=== PATIENT | female | born 1980 | race Caucasian/White ===

== ENCOUNTER 2018-01-21 11:53 | Emergency (ER) | payer OTHER, MEDICAID ==
[~2018-01-21] VITALS: Ht 152.4 cm; Wt 47.2 kg
[~2018-01-21 11:53] MED LIST: ACCUNEB SO1.25 MG/1 INH; ACETAMINOPHEN-1 EAC1 PO; BACTRIM; CARISOPRODOL; CIPRO500 MG PO; CLONAZEPAM; FLAGYL500 MG PO; FLEXERIL PO; HYDROCODONE-AP1 EAC6 PO; HYDROCODONE-APA1 TA1 PO; IBUPROFEN 800800 M1 PO; IBUPROFEN 800800 MG PO; LEXAPRO20 MG PO; NORCO 5-325 TA1 EACH PO; PYRIDIUM100 M1 PO; SPIRIVA INH; ULTRAM 50MG TAB50 MG PO; ZOFRAN ODT4 MG PO
[2018-01-21 12:03] LABS: URINE BILIRUBIN NEGATIVE (Negative); URINE BLOOD NEGATIVE (Negative); URINE CLARITY CLEAR; URINE COLOR YELLOW; URINE GLUCOSE-RANDOM NEGATIVE (Negative); URINE KETONES NEGATIVE (Negative); URINE LEUKOCYTES NEGATIVE (Negative); URINE NITRITE NEGATIVE (Negative); URINE PROTEIN NEGATIVE (Negative); URINE SPECIFIC GRAVITY >= 1.030 (1.005-1.030); URINE UROBILINOGEN 0.2 E.U./dl (0.2-1.0)
[2018-01-21] MEDS ORDERED: PERCOCET PO (12:13)
[2018-01-21] MEDS ORDERED: ASA5UEC PO (12:13)
[2018-01-21] MEDS ORDERED: LISINOPRIL10 MG PO (12:13)
[2018-01-21] MEDS ORDERED: FLEXERIL PO (12:14)
[2018-01-21] MEDS ORDERED: DIFLUCAN150 M1 PO (12:55)
[2018-01-21] MEDS ORDERED: DOXYCYCLINE 10100 MG PO (12:55)
[2018-01-21 13:04] VITALS: BP 107/68
== END 2018-01-21 13:05 | disposition home or self-care (01) ==
LOC: M.ERS 11:53
PROVIDERS: Nurse Practitioner Family
DX: A59.01 Trichomonal vulvovaginitis (principal); Z90.49 Acquired absence of other specified parts of digestive tract; Z90.710 Acquired absence of both cervix and uterus; Z85.42 Personal history of malignant neoplasm of other parts of uterus; Z88.0 Allergy status to penicillin

== ENCOUNTER 2018-10-15 11:47 | Emergency (ER) | payer OTHER ==
[~2018-10-15] VITALS: Ht 152.4 cm; Wt 45.4 kg
[~2018-10-15 11:47] MED LIST changes: +ASA5UEC PO; +DIFLUCAN150 M1 PO; +DOXYCYCLINE 10100 MG PO; +LISINOPRIL10 MG PO; +PERCOCET PO
[2018-10-15 12:36] LABS: URINE BILIRUBIN NEGATIVE (Negative); URINE BLOOD NEGATIVE (Negative); URINE CLARITY CLEAR; URINE COLOR YELLOW; URINE GLUCOSE-RANDOM NEGATIVE (Negative); URINE KETONES NEGATIVE (Negative); URINE LEUKOCYTES-REFLEX NEGATIVE (Negative); URINE NITRITE-REFLEX NEGATIVE (Negative); URINE PROTEIN TRACE (Negative); URINE SPECIFIC GRAVITY >= 1.030 (1.005-1.030); URINE UROBILINOGEN 0.2 E.U./dl (0.2-1.0)
[2018-10-15 12:37] LABS: ABSOLUTE EOSINOPHILS 0.1 thou/uL (0.0-0.7); ABSOLUTE LYMPHOCYTES 1.9 thou/uL (0.8-5.3); ABSOLUTE MONOCYTES 0.2 thou/uL (0.0-1.2); ABSOLUTE NEUTROPHILS 2.2 thou/uL (1.6-8.1); BASOPHILS 0.7 %; EOSINOPHILS 1.9 %; HEMATOCRIT 38.7 % (37.0-47.0); HEMOGLOBIN 12.9 gm/dL (12.0-15.0); LYMPHOCYTES 43.8 %; MCH 31.1 pg (26.0-34.0); MCHC 33.5 g/dL (28.0-37.0); MCV 93.1 fL (80.0-100.0); MONOCYTES 3.9 %; NUCLEATED RBCS 0 /100WBC; PLATELET COUNT* 209 thou/uL (150-400); POLYS 49.7 %; RBC 4.16 mil/uL (4.20-5.00); RDW-CV 13.1 % (10.5-14.5); WBC 4.4 thou/uL (4.0-11.0)
[2018-10-15 12:46] LABS: CALCIUM 8.6 mg/dL (8.5-10.1); CREATININE 0.8 mg/dL (0.6-1.3); POTASSIUM 3.2 mmol/L (3.5-5.1)
[2018-10-15 12:50] LABS: ALBUMIN 3.7 g/dL (3.4-5.0); TOTAL BILIRUBIN 0.2 mg/dL (<0.1-1.0); TOTAL PROTEIN 6.9 g/dL (6.4-8.2)
[2018-10-15] MEDS ORDERED: ACIPHEX 20 MG T20 MG PO (12:57)
[2018-10-15 13:04] VITALS: BP 170/100
--- NOTE | 2018-10-15 18:43 | EKG ---
[place] [address] ELECTROCARDIOGRAM REPORT Name: NALLELY KUMAR Room: [facility]#: [id number] Admission: 10/15/18 Attend Phys: Discharge: 10/15/18 Date of : 78 Report #: [id number] THIS REPORT FOR: //name// [facility] ED Test Date: 2018-10-15 Test Time: 12:35:32 Pat Name: NALLELY KUMAR Department: Room: Gender: F Retail Sales Director: Julieta LOUISE : 1980 Requested By: Rusty Cota Order Number: [id number] MD: Indra Thurman Measurements Intervals [place] Rate: 56 P: 267 [place]: 144 QRS: 27 QRSD: 129 T: -15 QT: 425 QTc: 411 Interpretive Statements Ectopic atrial rhythm Nonspecific intraventricular conduction delay Borderline T abnormalities, inferior leads Compared to ECG 12/13/2015 11:23:59 Ectopic atrial rhythm now present T-wave abnormality now present Sinus rhythm no longer present Electronically Signed On 10-15-2018 18:43:22 PATIENT REGISTRATION MANAGER by Indra Thurman [email or web address] <ELECTRONICALLY SIGNED> By: Indra Thurman MD, [facility] 10/15/18 1843 1235 1235 Indra Thurman MD, [facility] /EPI
== END 2018-10-15 13:05 | disposition home or self-care (01) ==
LOC: M.ERS 11:47
PROVIDERS: Emergency Medicine
DX: K27.9 Peptic ulcer, site unspecified, unspecified as acute or chronic, without hemorrhage or perforation (principal); N80.9 Endometriosis, unspecified; F17.210 Nicotine dependence, cigarettes, uncomplicated; Z88.0 Allergy status to penicillin; Z90.710 Acquired absence of both cervix and uterus; Z90.49 Acquired absence of other specified parts of digestive tract

== ENCOUNTER 2018-11-02 15:30 | Emergency (ER) | payer OTHER ==
[~2018-11-02] VITALS: Ht 152.4 cm; Wt 44.6 kg
[~2018-11-02 15:30] MED LIST changes: +ACIPHEX 20 MG T20 MG PO
[2018-11-02] MEDS ORDERED: TRAMADOL 50 MG50 MG PO (16:11)
[2018-11-02 17:38] VITALS: BP 110/77
== END 2018-11-02 17:40 | disposition home or self-care (01) ==
LOC: M.ERS 15:30
DX: M25.562 Pain in left knee (principal); J43.9 Emphysema, unspecified; N80.9 Endometriosis, unspecified; F17.210 Nicotine dependence, cigarettes, uncomplicated; Z88.0 Allergy status to penicillin; Z90.49 Acquired absence of other specified parts of digestive tract; Z90.710 Acquired absence of both cervix and uterus; Z85.42 Personal history of malignant neoplasm of other parts of uterus

== ENCOUNTER 2018-12-09 09:09 | Emergency (ER) | payer OTHER ==
[~2018-12-09] VITALS: Ht 152.4 cm; Wt 46.3 kg
[~2018-12-09 09:09] MED LIST changes: +TRAMADOL 50 MG50 MG PO
[2018-12-09] MEDS ORDERED: VENTOLIN HFA 1818 GM INH ×2 (09:15→10:37)
[2018-12-09] MEDS ORDERED: PREDNISONE 20 M20 M1 PO (10:37)
[2018-12-09] MEDS ORDERED: ZPAK PO (10:37)
[2018-12-09 10:58] VITALS: BP 180/97
== END 2018-12-09 10:56 | disposition home or self-care (01) ==
LOC: M.ERS 09:09
DX: J40 Bronchitis, not specified as acute or chronic (principal); J43.9 Emphysema, unspecified; N80.9 Endometriosis, unspecified; F17.210 Nicotine dependence, cigarettes, uncomplicated; Z90.710 Acquired absence of both cervix and uterus; Z90.49 Acquired absence of other specified parts of digestive tract; Z88.0 Allergy status to penicillin

== ENCOUNTER 2019-02-09 19:41 | Emergency (ER) | payer OTHER ==
[~2019-02-09] VITALS: Ht 152.4 cm; Wt 48.5 kg
[~2019-02-09 19:41] MED LIST changes: +PREDNISONE 20 M20 M1 PO; +VENTOLIN HFA 1818 GM INH; +ZPAK PO
[2019-02-09] MEDS ORDERED: IBUPROFEN 800800 M1 PO (21:58)
[2019-02-09] MEDS ORDERED: BUTALB-APAP-CA1 EACH PO (21:58)
[2019-02-09] MEDS ORDERED: KEFLEX500 M1 PO (21:59)
[2019-02-09 22:09] VITALS: BP 129/81
== END 2019-02-09 22:09 | disposition still patient (30) ==
LOC: M.ERS 19:41
DX: S00.12XA Contusion of left eyelid and periocular area, initial encounter (principal); S00.33XA Contusion of nose, initial encounter; S70.11XA Contusion of right thigh, initial encounter; S80.12XA Contusion of left lower leg, initial encounter; S40.022A Contusion of left upper arm, initial encounter; S40.021A Contusion of right upper arm, initial encounter; S00.83XA Contusion of other part of head, initial encounter; N80.9 Endometriosis, unspecified; J43.9 Emphysema, unspecified; F17.210 Nicotine dependence, cigarettes, uncomplicated; Z88.0 Allergy status to penicillin; Z90.710 Acquired absence of both cervix and uterus; Z85.50 Personal history of malignant neoplasm of unspecified urinary tract organ; Z90.49 Acquired absence of other specified parts of digestive tract; Y08.89XA Assault by other specified means, initial encounter; Y93.89 Activity, other specified; Y92.89 Other specified places as the place of occurrence of the external cause; Y99.8 Other external cause status

== ENCOUNTER 2019-02-16 13:24 | Emergency (ER) | payer OTHER ==
[~2019-02-16] VITALS: Ht 152.4 cm; Wt 47.6 kg
[~2019-02-16 13:24] MED LIST changes: +BUTALB-APAP-CA1 EACH PO; +KEFLEX500 M1 PO
[2019-02-16] MEDS ORDERED: NORCO 5-325 TA1 EACH PO (14:49)
[2019-02-16] MEDS ORDERED: KEFLEX500 M1 PO (14:49)
[2019-02-16] MEDS ORDERED: CIPROFLOXIN HC2.5 M1 OPHTHALMIC (14:49)
[2019-02-16 15:06] VITALS: BP 128/79
== END 2019-02-16 15:06 | disposition home or self-care (01) ==
LOC: M.ERS 13:24
DX: S06.0X0A Concussion without loss of consciousness, initial encounter (principal); S05.01XA Injury of conjunctiva and corneal abrasion without foreign body, right eye, initial encounter; H72.91 Unspecified perforation of tympanic membrane, right ear; N80.9 Endometriosis, unspecified; J43.9 Emphysema, unspecified; F17.210 Nicotine dependence, cigarettes, uncomplicated; Z90.710 Acquired absence of both cervix and uterus; Z90.49 Acquired absence of other specified parts of digestive tract; Z85.42 Personal history of malignant neoplasm of other parts of uterus; Z88.0 Allergy status to penicillin; Y08.89XA Assault by other specified means, initial encounter; Y93.89 Activity, other specified; Y92.89 Other specified places as the place of occurrence of the external cause; Y99.8 Other external cause status

== ENCOUNTER 2020-09-02 19:08 | Emergency (ER) | payer OTHER, MEDICAID ==
[~2020-09-02] VITALS: Ht 152.4 cm; Wt 49.9 kg
[~2020-09-02 19:08] MED LIST changes: +CIPROFLOXIN HC2.5 M1 OPHTHALMIC
[2020-09-02] MEDS ORDERED: HYDROCHLOROTH12.5 M2 PO (19:26)
[2020-09-02] MEDS ORDERED: NICOTINE TRANSD21 M1 (19:26)
[2020-09-02] MEDS ORDERED: ABILIFY 5 MG TAB5 MG PO (19:27)
[2020-09-02] MEDS ORDERED: HYDROXYZINE HCL25 M2 PO (19:27)
[2020-09-02] MEDS ORDERED: AMBIEN5 MG PO (19:28)
[2020-09-02] MEDS ORDERED: BUSPIRONE HCL10 MG PO (19:28)
[2020-09-02] MEDS ORDERED: BEVESPI AEROS10.7 GM INH (19:28)
[2020-09-02] MEDS ORDERED: LEXAPRO20 MG PO (19:28)
[2020-09-02] MEDS ORDERED: NORVASC 2.5 MG2.5 M1 PO (19:29)
[2020-09-02] MEDS ORDERED: ATROVENT HFA14 GM INH (19:29)
[2020-09-02] MEDS ORDERED: SPIRIVA INH (19:30)
[2020-09-02] MEDS ORDERED: NAPROSYN500 MG PO (20:37)
[2020-09-02] MEDS ORDERED: ULTRAM 50MG TAB50 MG PO (20:37)
[2020-09-02 20:56] VITALS: BP 126/70
== END 2020-09-02 20:56 | disposition home or self-care (01) ==
LOC: M.ERS 19:08
DX: S20.212A Contusion of left front wall of thorax, initial encounter (principal); S00.03XA Contusion of scalp, initial encounter; Z79.899 Other long term (current) drug therapy; Z88.0 Allergy status to penicillin; Z90.710 Acquired absence of both cervix and uterus; Z90.49 Acquired absence of other specified parts of digestive tract; Y08.89XA Assault by other specified means, initial encounter; Y93.89 Activity, other specified; Y92.89 Other specified places as the place of occurrence of the external cause; Y99.8 Other external cause status

== ENCOUNTER 2021-01-28 18:17 | Emergency (ER) | payer OTHER, MEDICAID ==
[~2021-01-28] VITALS: Ht 152.4 cm; Wt 54.0 kg
[~2021-01-28 18:17] MED LIST changes: +ABILIFY 5 MG TAB5 MG PO; +AMBIEN5 MG PO; +ATROVENT HFA14 GM INH; +BEVESPI AEROS10.7 GM INH; +BUSPIRONE HCL10 MG PO; +HYDROCHLOROTH12.5 M2 PO; +HYDROXYZINE HCL25 M2 PO; +NAPROSYN500 MG PO; +NICOTINE TRANSD21 M1; +NORVASC 2.5 MG2.5 M1 PO
[2021-01-28] MEDS ORDERED: SUPER THERAVIT1 EACH PO (18:27)
[2021-01-28] MEDS ORDERED: DOXYCYCLINE 10100 MG PO (18:39)
[2021-01-28] MEDS ORDERED: ONDANSETRON ODT4 MG PO (18:59)
[2021-01-28 19:04] LABS: URINE BILIRUBIN NEGATIVE (Negative); URINE BLOOD NEGATIVE (Negative); URINE CLARITY CLEAR; URINE COLOR YELLOW; URINE GLUCOSE-RANDOM NEGATIVE (Negative); URINE KETONES NEGATIVE (Negative); URINE LEUKOCYTES-REFLEX NEGATIVE (Negative); URINE NITRITE-REFLEX NEGATIVE (Negative); URINE PROTEIN NEGATIVE (Negative); URINE SPECIFIC GRAVITY >= 1.030 (1.005-1.030); URINE UROBILINOGEN 0.2 E.U./dl (0.2-1.0)
[2021-01-28 20:19] VITALS: BP 126/78
== END 2021-01-28 20:19 | disposition home or self-care (01) ==
LOC: M.ERS 18:17
PROVIDERS: Physician Assistant
DX: Z20.2 Contact with and (suspected) exposure to infections with a predominantly sexual mode of transmission (principal); N80.9 Endometriosis, unspecified; Z88.0 Allergy status to penicillin; Z90.710 Acquired absence of both cervix and uterus; Z90.49 Acquired absence of other specified parts of digestive tract; Z85.42 Personal history of malignant neoplasm of other parts of uterus

== ENCOUNTER 2021-03-30 11:16 | Emergency (ER) | payer OTHER, MEDICAID ==
[~2021-03-30] VITALS: Ht 152.4 cm; Wt 54.4 kg
[~2021-03-30 11:16] MED LIST changes: +ONDANSETRON ODT4 MG PO; +SUPER THERAVIT1 EACH PO
[2021-03-30 11:43] LABS: ABSOLUTE EOSINOPHILS 0.2 thou/uL (0.0-0.7); ABSOLUTE LYMPHOCYTES 1.2 thou/uL (0.8-5.3); ABSOLUTE MONOCYTES 0.2 thou/uL (0.0-1.2); BASOPHILS 0.9 %; EOSINOPHILS 3.4 %; HEMATOCRIT 38.3 % (37.0-47.0); HEMOGLOBIN 12.8 gm/dL (12.0-15.0); MCHC 33.5 g/dL (28.0-37.0); MCV 92.7 fL (80.0-100.0); MONOCYTES 5.1 %; MPV 7.4 fl. (7.2-11.1); NUCLEATED RBCS 0 /100WBC; PLATELET COUNT* 274 thou/uL (150-400); POLYS 65.6 %; RBC 4.13 mil/uL (4.20-5.00); RDW-CV 12.8 % (10.5-14.5); WBC 4.6 thou/uL (4.0-11.0)
[2021-03-30 11:54] LABS: CALCIUM 8.7 mg/dL (8.5-10.1); POTASSIUM 3.8 mmol/L (3.5-5.1)
[2021-03-30 12:04] LABS: ALBUMIN 4.1 g/dL (3.4-5.0); TOTAL BILIRUBIN 0.2 mg/dL (<0.1-1.0); TOTAL PROTEIN 7.5 g/dL (6.4-8.2)
[2021-03-30 12:28] LABS: URINE BILIRUBIN NEGATIVE (Negative); URINE BLOOD NEGATIVE (Negative); URINE CLARITY CLEAR; URINE COLOR YELLOW; URINE GLUCOSE-RANDOM NEGATIVE (Negative); URINE KETONES NEGATIVE (Negative); URINE LEUKOCYTES-REFLEX TRACE (Negative); URINE NITRITE-REFLEX NEGATIVE (Negative); URINE PROTEIN NEGATIVE (Negative); URINE SPECIFIC GRAVITY <= 1.005 (1.005-1.030); URINE UROBILINOGEN 0.2 E.U./dl (0.2-1.0)
[2021-03-30 12:38] LABS: BACTERIA-REFLEX None Seen /HPF (None Seen); CASTS None Seen /LPF (None Seen); CRYSTALS None Seen /LPF (None Seen); MUCUS None Seen strn/LPF (None Seen); SQUAMOUS 0-3 Few /LPF (0-3); URINE RBC 0-2 Rare /HPF (0-2); URINE WBC-REFLEX 0-5 Rare /HPF (0-5)
[2021-03-30] MEDS ORDERED: DOXYCYCLINE 10100 M2 PO (14:03)
[2021-03-30] MEDS ORDERED: PREDNISONE50 MG PO (14:03)
[2021-03-30] MEDS ORDERED: AMLODIPINE BESY10 MG PO (14:03)
[2021-03-30 14:21] VITALS: BP 151/73
--- NOTE | 2021-03-30 17:45 | EKG ---
[place] [address] ELECTROCARDIOGRAM REPORT Name: NALLELY KUMAR Room: [facility]#: [id number] Admission: 03/30/21 Attend Phys: Discharge: 03/30/21 Date of : 78 Date of Service: 03/30/21 1124 Report #: [id number] THIS REPORT FOR: //name// [facility] ED Test Date: 2021-03-30 Test Time: 11:24:17 Pat Name: NALLELY KUMAR Department: Room: Gender: F [place] : 1980 Requested By: Ganesh Sommer Order Number: [id number] MD: Arnold Murdock Measurements Intervals [place] Rate: 60 P: 71 TN: 149 QRS: 52 QRSD: 101 T: 68 QT: 413 QTc: 413 Interpretive Statements Sinus rhythm Low voltage, extremity and precordial leads Baseline wander in lead(s) II,III,aVF Compared to ECG 10/15/2018 12:35:32 Low QRS voltage now present Ectopic atrial rhythm no longer present Intraventricular conduction delay no longer present T-wave abnormality no longer present Electronically Signed On 03-30-2021 17:45:22 CDT by Arnold Murdock [email or web address] <ELECTRONICALLY SIGNED> By: Arnold Murdock MD, [facility] 03/30/21 1745 1124 1124 Arnold Murdock MD, [facility] /EPI
== END 2021-03-30 14:22 | disposition home or self-care (01) ==
LOC: M.ERS 11:16
PROVIDERS: Emergency Medicine Emergency Medical Services
DX: N39.0 Urinary tract infection, site not specified (principal); Z20.822 Contact with and (suspected) exposure to COVID-19; R07.89 Other chest pain; N80.9 Endometriosis, unspecified; Z88.0 Allergy status to penicillin; Z90.49 Acquired absence of other specified parts of digestive tract; Z90.710 Acquired absence of both cervix and uterus; Z85.42 Personal history of malignant neoplasm of other parts of uterus